=== PATIENT | male | born 1990 | race African-American/Black ===

== ENCOUNTER 2021-06-02 07:22 | Emergency (ER) | payer MEDICAID ==
[~2021-06-02] VITALS: Ht 172.7 cm; Wt 110.0 kg
[2021-06-02] MEDS ORDERED: TRAMADOL 50MG TABLET PO ONE (08:15)
[2021-06-02] MEDS ORDERED: TRAM50TA3 MT (10:32)
[2021-06-02] MEDS ORDERED: IBUP-2030 MT (10:32)
[2021-06-02] MEDS ORDERED: METH-773 MT (10:32)
[2021-06-02 10:58] VITALS: BP 155/93
== END 2021-06-02 10:59 | disposition home or self-care (01) ==
LOC: ER 07:55
DX: S09.8XXA Other specified injuries of head, initial encounter (principal); S01.81XA Laceration without foreign body of other part of head, initial encounter; S59.801A Other specified injuries of right elbow, initial encounter; S59.812A Other specified injuries left forearm, initial encounter; V43.52XA Car driver injured in collision with other type car in traffic accident, initial encounter; Y93.89 Activity, other specified; Y92.410 Unspecified street and highway as the place of occurrence of the external cause
CPT/HCPCS: 12011; 72070; 73080; 73090; 99284

== ENCOUNTER 2023-08-09 15:41 | Emergency (ER) | payer SELFPAY ==
[~2023-08-09] VITALS: Ht 170.2 cm; Wt 109.0 kg
[~2023-08-09 15:41] MED LIST: IBUP-2030 MT; METH-773 MT; TRAM50TA3 MT
[2023-08-09 16:20] VITALS: BP 153/110; TEMP 98.9; O2SAT 100
[2023-08-09 16:22] VITALS: PULSE 95; RESP 20
[2023-08-09] MEDS ORDERED: TETANUS, DIPHTHERIA, PERTUSSIS VAC/PF 0.5ML (>10YR OLD) IM ONE ×2 (17:45→20:15)
[2023-08-09] MEDS ORDERED: AMOX1TAB16 MT (19:31)
[2023-08-09] MEDS ORDERED: IBUP-2030 MT (19:31)
== END 2023-08-09 20:46 | disposition home or self-care (01) ==
LOC: ER 15:41
DX: S02.2XXA Fracture of nasal bones, initial encounter for closed fracture (principal); W50.3XXA Accidental bite by another person, initial encounter; Y93.89 Activity, other specified; Y92.89 Other specified places as the place of occurrence of the external cause; Y99.8 Other external cause status
CPT/HCPCS: 70486; 90471; 90715; 99285